=== PATIENT | male | born 1990 | race African-American/Black ===

== ENCOUNTER 2017-03-07 02:23 | Emergency (ER) | payer MEDICAID ==
[~2017-03-07] VITALS: Ht 175.3 cm; Wt 66.0 kg
[2017-03-07 05:07] VITALS: BP 156/84
== END 2017-03-07 07:47 | disposition home or self-care (01) ==
LOC: ER 02:33
DX: S00.83XA Contusion of other part of head, initial encounter (principal); R22.0 Localized swelling, mass and lump, head; Y08.89XA Assault by other specified means, initial encounter; Y93.89 Activity, other specified; Y92.89 Other specified places as the place of occurrence of the external cause; J45.909 Unspecified asthma, uncomplicated
CPT/HCPCS: 70450; 70486; 99284

== ENCOUNTER 2018-12-14 09:31 | Emergency (ER) | payer MEDICAID ==
[~2018-12-14] VITALS: Ht 175.3 cm; Wt 66.0 kg
[2018-12-14 09:42] VITALS: BP 116/74
[2018-12-14] MEDS ORDERED: ACETAMINOPHEN 325MG TABLET PO ONE (11:15)
[2018-12-14 11:16] LABS: CLARITY URINE CLEAR (CLEAR); COLOR URINE YELLOW (YELLOW); KETONES URINE NEGATIVE (NEGATIVE); LEUKOCYTE ESTERASE URINE NEGATIVE (NEGATIVE); NITRITE URINE NEGATIVE (NEGATIVE); OCCULT BLOOD URINE NEGATIVE (NEGATIVE); PROTEIN URINE 1+ (NEGATIVE); SPECIFIC GRAVITY URINE 1.026 (1.005-1.030)
[2018-12-14 11:24] LABS: CHLORIDE 103 mEq/L (98-107); HEMATOCRIT. 43.9 % (42.0-52.0); HEMOGLOBIN. 14.9 g/dL (14.0-18.0); MEAN CORPUSCULAR HEMOGLOBIN 32.9 pg (28.0-32.0); MEAN PLATELET VOLUME 8.8 fl (7.4-10.4); PLATELET 234 x1000/uL (130-400); RED BLOOD CELL COUNT 4.52 mill/uL (4.7-6.1); RED CELL DISTRIBUTION WIDTH 12.8 % (11.6-14.6)
[2018-12-14 11:32] LABS: T4 FREE 1.15 ng/dL (0.76-1.46)
[2018-12-14 12:44] LABS: PLATELET ESTIMATE NORMAL
== END 2018-12-14 13:57 | disposition home or self-care (01) ==
LOC: ER 09:31
DX: B34.9 Viral infection, unspecified (principal); R61 Generalized hyperhidrosis; J45.909 Unspecified asthma, uncomplicated
CPT/HCPCS: 36415; 71045; 84439; 84443; 99284

== ENCOUNTER 2023-03-15 12:45 | Emergency (ER) | payer MEDICAID ==
[~2023-03-15] VITALS: Ht 175.3 cm; Wt 74.0 kg
[2023-03-15 12:57] VITALS: BP 148/80; PULSE 80; RESP 18; TEMP 98; O2SAT 97
== END 2023-03-15 13:51 | disposition left against medical advice (07) ==
LOC: ER 12:45
DX: F10.129 Alcohol abuse with intoxication, unspecified (principal); J45.909 Unspecified asthma, uncomplicated; Y90.9 Presence of alcohol in blood, level not specified
CPT/HCPCS: 99283

== ENCOUNTER 2023-04-03 11:37 | Emergency (ER) | payer MEDICAID ==
[~2023-04-03] VITALS: Ht 175.3 cm; Wt 66.0 kg
[~2023-04-03 11:37] MED LIST: ACYC200C31 MT; CEPH500C2 MT; IBUP-2028 MT; SULF1TAB48 MT
[2023-04-03 11:53] VITALS: BP 118/78; RESP 16; TEMP 98.5; O2SAT 100
[2023-04-03 11:54] VITALS: PULSE 94
[2023-04-03] MEDS ORDERED: CEPH500C2 PO (12:18)
[2023-04-03] MEDS ORDERED: IBUP-2028 PO (12:18)
[2023-04-03] MEDS ORDERED: SULF1TAB48 PO (12:18)
[2023-04-03] MEDS ORDERED: ACYC200C31 PO (12:18)
== END 2023-04-03 12:39 | disposition home or self-care (01) ==
LOC: ER 11:37
DX: L03.011 Cellulitis of right finger (principal); J45.909 Unspecified asthma, uncomplicated; Z79.899 Other long term (current) drug therapy
CPT/HCPCS: 99281; 99283

== ENCOUNTER 2023-05-24 21:18 | Emergency (ER) | payer MEDICAID ==
[~2023-05-24] VITALS: Ht 175.3 cm; Wt 57.0 kg
[~2023-05-24 21:18] MED LIST changes: +ACYC200C31 PO; +CEPH500C2 PO; +IBUP-2028 PO; +SULF1TAB48 PO
[2023-05-24 21:24] VITALS: BP 123/83; O2SAT 98
[2023-05-24] MEDS ORDERED: LIDOCAINE HCL/PF 1% 10 MG/ML 5ML VIAL INFIL ONE (22:00)
[2023-05-24] MEDS ORDERED: CEFTRIAXONE SODIUM 1 G/VIAL IM ONE (22:00)
[2023-05-25] MEDS ORDERED: PHEN20SP MT (00:17)
[2023-05-25] MEDS ORDERED: DOXY100C5 MT (00:17)
[2023-05-25] MEDS ORDERED: LIDOCAINE HCL/PF 1% 10 MG/ML 5ML VIAL INFIL NR (00:30)
[2023-05-25] MEDS ORDERED: CEFTRIAXONE SODIUM 1 G/VIAL IM NR (00:30)
[2023-05-25 00:57] VITALS: PULSE 86; RESP 18; TEMP 98.1
[2023-05-25 01:10] LABS: CLARITY URINE CLEAR (CLEAR); COLOR URINE YELLOW (YELLOW); GLUCOSE URINE NEGATIVE (NEGATIVE); KETONES URINE NEGATIVE (NEGATIVE); LEUKOCYTE ESTERASE URINE NEGATIVE (NEGATIVE); NITRITE URINE NEGATIVE (NEGATIVE); OCCULT BLOOD URINE NEGATIVE (NEGATIVE); PH URINE 5.5 (4.5-8.0); PROTEIN URINE 1+ (NEGATIVE); SPECIFIC GRAVITY URINE 1.016 (1.005-1.030); UROBILINOGEN URINE 0.2 E.U./dL (0.2-1.0)
[2023-05-25 01:13] LABS: BACTERIA URINE NONE SEEN; RBC URINE NONE SEEN /hpf (0-2); SQUAMOUS EPITHELIAL CELL URINE NONE SEEN /lpf (RARE/1+); YEAST URINE NONE SEEN
== END 2023-05-25 00:57 | disposition home or self-care (01) ==
LOC: ER 21:18
DX: A54.9 Gonococcal infection, unspecified (principal); J06.9 Acute upper respiratory infection, unspecified
CPT/HCPCS: 81003; 96372; 99283; 87426; J0696; J3490; C9803; Z7610 ×2

== ENCOUNTER 2023-07-26 08:34 | Emergency (ER) | payer MEDICAID ==
[~2023-07-26] VITALS: Ht 175.3 cm; Wt 66.0 kg
[~2023-07-26 08:34] MED LIST changes: +DOXY100C5 MT; +PHEN20SP MT
[2023-07-26 08:52] VITALS: BP 131/52; PULSE 91; RESP 15; TEMP 98.6; O2SAT 98
[2023-07-26 09:35] LABS: CLARITY URINE CLEAR (CLEAR); COLOR URINE YELLOW (YELLOW); GLUCOSE URINE NEGATIVE (NEGATIVE); KETONES URINE NEGATIVE (NEGATIVE); OCCULT BLOOD URINE NEGATIVE (NEGATIVE); PROTEIN URINE NEGATIVE (NEGATIVE); SPECIFIC GRAVITY URINE 1.015 (1.005-1.030)
[2023-07-26 09:36] LABS: LEUKOCYTE ESTERASE URINE NEGATIVE (NEGATIVE); NITRITE URINE NEGATIVE (NEGATIVE); UROBILINOGEN URINE 0.2 E.U./dL (0.2-1.0)
[2023-07-26] MEDS ORDERED: CEFTRIAXONE SODIUM 500 MG/VIAL IM ONE (10:45)
[2023-07-26] MEDS ORDERED: DOXYCYCLINE HYCLATE 100MG CAPSULE PO ONE (10:45)
[2023-07-26] MEDS ORDERED: DOXY100T2 MT (10:48)
== END 2023-07-26 11:59 | disposition home or self-care (01) ==
LOC: ER 08:34
DX: Z20.2 Contact with and (suspected) exposure to infections with a predominantly sexual mode of transmission (principal)
CPT/HCPCS: 81003; 99283; J0696; Z7610 ×2

== ENCOUNTER 2023-08-05 13:19 | Emergency (ER) | payer MEDICAID ==
[~2023-08-05] VITALS: Ht 175.3 cm; Wt 59.0 kg
[~2023-08-05 13:19] MED LIST changes: +DOXY100T2 MT
[2023-08-05 13:31] VITALS: BP 114/64; PULSE 72; RESP 16; TEMP 98.2; O2SAT 100
== END 2023-08-05 20:59 | disposition left against medical advice (07) ==
LOC: ER 13:22
DX: R07.89 Other chest pain (principal); Z53.21 Procedure and treatment not carried out due to patient leaving prior to being seen by health care provider
CPT/HCPCS: 99281

== ENCOUNTER 2023-10-31 16:44 | Emergency (ER) | payer MEDICAID ==
[~2023-10-31] VITALS: Ht 175.3 cm; Wt 66.0 kg
[~2023-10-31 16:44] MED LIST changes: -ACYC200C31 MT; +ALBU6.7H15 INH; -CEPH500C2 MT; -CEPH500C2 PO; -DOXY100C5 MT; -DOXY100T2 MT; +FLUT1DIS2 INH; -IBUP-2028 MT; -IBUP-2028 PO; +MED4 MT; -PHEN20SP MT; -SULF1TAB48 MT; -SULF1TAB48 PO
[2023-10-31 17:04] VITALS: BP 151/94; PULSE 89; RESP 18; O2SAT 98
[2023-10-31] MEDS ORDERED: ACETAMINOPHEN 325MG TABLET PO ONE (18:45)
[2023-10-31] MEDS ORDERED: TOPUD MT (21:08)
[2023-10-31] MEDS ORDERED: IBUP-1523 MT (21:08)
[2023-10-31] MEDS ORDERED: TRAM50TA3 MT (21:08)
[2023-10-31 21:14] VITALS: TEMP 98.2
[2023-10-31] MEDS: ACETAMINOPHEN 325MG TABLET PO NR (21:14)
== END 2023-10-31 21:22 | disposition home or self-care (01) ==
LOC: ER 16:44
DX: S00.93XA Contusion of unspecified part of head, initial encounter (principal); S20.219A Contusion of unspecified front wall of thorax, initial encounter; Z98.890 Other specified postprocedural states; Y04.0XXA Assault by unarmed brawl or fight, initial encounter; Y93.89 Activity, other specified; Y92.89 Other specified places as the place of occurrence of the external cause; Y99.8 Other external cause status
CPT/HCPCS: 71046; 99284

== ENCOUNTER 2024-09-14 17:14 | Emergency (ER) | payer MEDICAID ==
[~2024-09-14] VITALS: Ht 172.7 cm; Wt 70.0 kg
[~2024-09-14 17:14] MED LIST changes: +IBUP-1523 MT; -MED4 MT; +METH4TAB95 MT; +TOPUD MT; +TRAM50TA3 MT
[2024-09-14 17:28] VITALS: BP 107/64; PULSE 82; RESP 16; TEMP 36.7; O2SAT 97
[2024-09-14 19:24] LABS: BASOPHILS % 0.4 % (0.0-2.0); DIFFERENTIAL COMMENT 0; EOSINOPHILS % 4.8 % (0.0-5.0); HEMATOCRIT. 38.5 % (42.0-52.0); HEMOGLOBIN. 12.8 g/dL (14.0-18.0); LYMPHOCYTES % 63.5 % (20.0-50.0); MEAN CORPUSCULAR HEMOGLOBIN 33.4 pg (28.0-32.0); MEAN CORPUSCULAR HGB CONC 33.2 g/dL (31.0-37.0); MEAN CORPUSCULAR VOLUME 100.5 fL (80.0-94.0); MONOCYTES % 5.4 % (2.0-8.0); NEUTROPHILS % 25.9 % (40.0-76.0); PLATELET 273 x1000/uL (130-400); RED BLOOD CELL COUNT 3.83 mill/uL (4.7-6.1); WHITE BLOOD COUNT 3.9 x1000/uL (4.5-11.0)
[2024-09-14 19:29] LABS: CHLORIDE 110 mEq/L (98-107); POTASSIUM 4.4 mEq/L (3.5-5.1); SODIUM 146 mEq/L (136-145)
[2024-09-14 19:30] LABS: CALCIUM 8.9 mg/dL (8.7-10.4); CARBON DIOXIDE 30 mEq/L (21-32)
[2024-09-14 19:35] LABS: CREATININE 1.1 mg/dL (0.6-1.3); ETHANOL BLOOD 207 mg/dL (<10); GLUCOSE 81 mg/dL (70-105); UREA NITROGEN BLOOD 8 mg/dL (9-23)
[2024-09-14 19:36] LABS: PROTHROMBIN TIME 11.4 sec (9.6-11.0)
== END 2024-09-14 19:51 | disposition home or self-care (01) ==
LOC: ER 17:14
DX: R41.82 Altered mental status, unspecified (principal); F10.129 Alcohol abuse with intoxication, unspecified; J45.909 Unspecified asthma, uncomplicated; Z79.51 Long term (current) use of inhaled steroids; Y90.9 Presence of alcohol in blood, level not specified
CPT/HCPCS: 36415; 80048; 80320; 85025; 99283; G0480

== ENCOUNTER 2024-12-04 01:47 | Emergency (ER) | payer MEDICAID ==
[~2024-12-04] VITALS: Ht 172.7 cm; Wt 68.0 kg
[2024-12-04 01:48] VITALS: TEMP 36.5; O2SAT 98
[2024-12-04 02:35] LABS: BASOPHILS % 1.2 % (0.0-2.0); DIFFERENTIAL COMMENT 0; EOSINOPHILS % 2.7 % (0.0-5.0); HEMATOCRIT. 43.9 % (42.0-52.0); HEMOGLOBIN. 14.9 g/dL (14.0-18.0); LYMPHOCYTES % 64.3 % (20.0-50.0); MEAN CORPUSCULAR HEMOGLOBIN 33.6 pg (28.0-32.0); MEAN CORPUSCULAR HGB CONC 33.9 g/dL (31.0-37.0); MEAN CORPUSCULAR VOLUME 99.1 fL (80.0-94.0); MEAN PLATELET VOLUME 8.7 fl (7.4-10.4); MONOCYTES % 4.5 % (2.0-8.0); NEUTROPHILS % 27.3 % (40.0-76.0); PLATELET 311 x1000/uL (130-400); RED BLOOD CELL COUNT 4.43 mill/uL (4.7-6.1); RED CELL DISTRIBUTION WIDTH 14.5 % (11.6-14.6); WHITE BLOOD COUNT 4.3 x1000/uL (4.5-11.0)
[2024-12-04 02:37] LABS: CHLORIDE 105 mEq/L (98-107); POTASSIUM 4.1 mEq/L (3.5-5.1); SODIUM 142 mEq/L (136-145)
[2024-12-04 02:38] LABS: CALCIUM 9.1 mg/dL (8.7-10.4); CARBON DIOXIDE 28 mEq/L (21-32)
[2024-12-04 02:43] LABS: GLUCOSE 92 mg/dL (70-105); UREA NITROGEN BLOOD 8 mg/dL (9-23)
[2024-12-04 02:53] LABS: ETHANOL BLOOD 307 mg/dL (<10)
[2024-12-04 05:50] VITALS: BP 108/63; PULSE 72; RESP 18; O2SAT 99
== END 2024-12-04 06:30 | disposition home or self-care (01) ==
LOC: ER 01:47
DX: F10.129 Alcohol abuse with intoxication, unspecified (principal); J45.909 Unspecified asthma, uncomplicated; Z98.890 Other specified postprocedural states; Y90.8 Blood alcohol level of 240 mg/100 ml or more
CPT/HCPCS: 36415; 80048; 80320; 85025; 99283; G0480